=== PATIENT | female | born 1935 | race Caucasian/White ===

== ENCOUNTER 2019-09-13 07:38 | Day surgery (SDC) | payer MEDICARE, SELFPAY ==
[2019-09-12 09:56] VITALS: BMI 30.7
[2019-09-13 08:00] VITALS: BP 163/87; PULSE 86; RESP 18; TEMP 36.6; O2SAT 100
--- NOTE | 2019-09-13 08:16 | ANES.PREANES ---
Pre-Anesthetic Assessment Pre-Anesthetic Assessment: Height/Weight: Height 1.57 m Weight 76.204 kg Proposed Procedure: Operation Date: 09/13/19 09:00 Proposed Procedures p Colonoscopy(Not Applicable) - Saul Morales MD Social: Social History: No alcohol and No tobacco Exam: Pre-Anes Outpt Exam: alert, oriented x 3, clear to auscultation bilaterally and regular rate & rhythm Airway: Dentition: Partials (upper) History/ROS: No significant history except as noted Pulmonary: Pulmonary: None reported CV/HEM: CV/HEM: HTN : : None reported Hepatic: Hepatic: None reported GI: GI: None reported Metabolic: Metabolic: DM, Hyperlipidemia and Thyroid Musc/skel: Musc/skel: Lower Back Pain and OA/DJD Neuropsych: Neuropsych: None reported Anesthetic Plan: ASA status: III Anesthesia: MAC Risk of > 500 ml blood loss (7ml/kg in children): No PFSH Anesthesia PFSH: Medical History Anemia (Acute) Chronic low back pain (Acute) CRVO (central retinal vein occlusion) (Acute) Diabetes (Acute) Diverticulosis (Acute) Hypercholesterolemia (Acute) Hypertension (Acute) Hypothyroidism (Acute) Sleep apnea (Acute) Surgical History H/O basal cell carcinoma excision (Acute) H/O bladder repair surgery (Acute) H/O carpal tunnel repair (Acute) H/O colonoscopy (Acute) 2005 H/O melanoma excision (Acute) H/O tracheostomy (Acute) History of appendectomy (Acute) History of back surgery (Acute) History of hip replacement (Acute) Left and right History of total abdominal hysterectomy (Acute) Hx of cholecystectomy (Acute) Family History Mother CAD (coronary artery disease) Diabetes Denies family history of Anesthesia complication Bleeding disorder Social History Smoking and tobacco status: never smoked Alcohol intake: current Alcohol intake frequency: holidays/special occasions only Household members: spouse Marital status: Current occupational status: retired Data Anesthesia Cardiac Studies: No Data to Display
[2019-09-13] MEDS: sodium chloride 0.9% 1,000 ML 30 ML (08:23)
--- NOTE | 2019-09-13 08:37 | PM.HPUD ---
H&P update H&P Update: DATE OF SURGERY/PROCEDURE: 09/13/19 DATE H&P PERFORMED: 09/02/19 H&P UPDATE INFORMATION: H&P completed within last 30 days and No changes to prior documentation PLANNED PROCEDURE: Operation Date: 09/13/19 09:00 Proposed Procedures p Colonoscopy(Not Applicable) - Saul Morales MD Full H&P Perinent History: Medical/Surgical History: Medical History (Updated 09/02/19 @ 14:05 by Saul Morales MD) Anemia (Acute) Chronic low back pain (Acute) CRVO (central retinal vein occlusion) (Acute) Diabetes (Acute) Diverticulosis (Acute) Hypercholesterolemia (Acute) Hypertension (Acute) Hypothyroidism (Acute) Sleep apnea (Acute) Family History: Family History (Updated 09/02/19 @ 13:35 by Nerissa Santiago LPN) Mother CAD (coronary artery disease) Diabetes Denies family history of Anesthesia complication Bleeding disorder Social History: Social History Smoking and tobacco status: never smoked Alcohol intake: current Alcohol intake frequency: holidays/special occasions only Household members: spouse Marital status: Current occupational status: retired
[2019-09-13 08:54] LABS: Glucose Point of Care 158 mg/dL (70-110)
[2019-09-13 09:08] VITALS: BP 137/94; PULSE 86; RESP 16; TEMP 37.7; O2SAT 98
--- NOTE | 2019-09-13 09:22 | ANE.PACU ---
 Inpatient post-anesthesia follow up: Airway intact: Yes Vital signs: Temperature Pulse Rate Respiratory Rate Blood Pressure Pulse Oximetry Oxygen Delivery Me thod Oxygen Flow Rate Fraction of Inspir ed Oxygen Hydration adequate: Yes Nausea and vomiting: No Mental status: Baseline
[2019-09-13 09:30] VITALS: BP 151/89; PULSE 82; RESP 18
== END 2019-09-13 09:54 | disposition home or self-care (01) ==
PROVIDERS: Family Provider Family Medicine; PCP Family Medicine; Visit Provider Surgery
PROC: 0DJD8ZZ Inspection of Lower Intestinal Tract, Via Natural or Artificial Opening Endoscopic (ICD-10-PCS; CPT 45378; principal; 2019-09-13 09:00)
DX: K52.9 Noninfective gastroenteritis and colitis, unspecified (principal); K57.30 Diverticulosis of large intestine without perforation or abscess without bleeding; Z79.84 Long term (current) use of oral hypoglycemic drugs; E11.9 Type 2 diabetes mellitus without complications; E78.00 Pure hypercholesterolemia, unspecified; I10 Essential (primary) hypertension; E03.9 Hypothyroidism, unspecified; G47.30 Sleep apnea, unspecified; Z82.49 Family history of ischemic heart disease and other diseases of the circulatory system; Z83.3 Family history of diabetes mellitus
CPT/HCPCS: 12345; 36416; 45380; 82274; 82962; 83630; 87177; 87209; 87493; 87505; 88305; 96365; J2704; J7030

== ENCOUNTER → 2020-06-14 16:30 | Outpatient (BNVA) | payer MEDICARE, SELFPAY | PROVIDERS: Family Provider Family Medicine; PCP Family Medicine; Visit Provider Dermatology | DX: D48.9 Neoplasm of uncertain behavior, unspecified (principal) | CPT/HCPCS: 88304 ==

== ENCOUNTER 2020-07-02 07:55 | Outpatient (CLI) | payer MEDICARE, SELFPAY ==
--- NOTE | 2020-07-02 08:10 | MM_ITS ---
WS: [id number] Bilateral screening digital mammogram, 07/02/2020 Clinical Data: SCREENING Comparison: 05/18/2019, 04/23/2018, 03/17/2017, 12/17/2015, 12/11/2014, 09/28/2013, 08/31/2012, 07/25/2011, , 07/09/2009, 06/28/2008, 06/14/2007, 06/11/2006. Findings: The breast parenchymal pattern shows fibroglandular tissue No spiculated masses or clustered calcific ations are seen. There are no secondary signs of carcinoma. Multiple markers are on both breasts. The re are lymph nodes in the left axilla. MM/[id number] Impression: 1. Negative bilateral mammogram unchanged. 2. Recommend annual screening mammograms. BIRADS: 1-Negative FOLLOW UP: 1 Year Follow-up The CAD drawing checker was used.
== END 2020-07-02 07:56 | disposition home or self-care (01) ==
LOC: RADSHAW 08:03
PROVIDERS: PCP Family Medicine; Visit Provider Family Medicine
DX: Z12.31 Encounter for screening mammogram for malignant neoplasm of breast (principal)
CPT/HCPCS: 77067